=== PATIENT | male | born 1965 | race Hispanic/Latino ===

== ENCOUNTER 2020-10-06 10:21 | Outpatient (CLI) | payer OTHER ==
--- NOTE | 2020-10-06 11:11 | XRay Report ---
LEFT SHOULDER 3 VIEWS INDICATION: LEFT SHOULDER PAIN. COMPARISON: None. IMPRESSION: No acute osseous or soft tissue abnormality. No significant DJD. Signer Name: Brian Hankins Jr, MD Signed: 10/06/2020 11:06 AM Workstation Name: [id number]
== END 2020-10-06 10:22 | disposition home or self-care (01) ==
LOC: XRAY 10:21
PROVIDERS: ATTEND Internal Medicine
DX: M25.512 Pain in left shoulder (principal)